=== PATIENT | female | born 1990 | race African-American/Black ===

== ENCOUNTER 2019-04-22 10:30 | Emergency (ER) | payer MEDICAID ==
[~2019-04-22] VITALS: Ht 162.6 cm; Wt 82.0 kg
[2019-04-22] MEDS ORDERED: SODIUM CHLORIDE 0.9% 1,000 ML IV ONE (10:58)
[2019-04-22] MEDS ORDERED: ASPIRIN 81MG TABLET PO ONE (11:00)
[2019-04-22] MEDS: NITROGLYCERIN 0.4MG TABLET SL SL PRN ×3 (11:45→12:01)
[2019-04-22 11:48] LABS: BASOPHILS % 0.7 % (0.0-2.0); CHLORIDE 108 mEq/L (98-107); EOSINOPHILS % 1.4 % (0.0-5.0); HEMATOCRIT. 36.1 % (36.0-48.0); HEMOGLOBIN. 11.9 g/dL (12.0-16.0); LYMPHOCYTES % 35.8 % (20.0-50.0); MEAN CORPUSCULAR HEMOGLOBIN 27.9 pg (28.0-32.0); MEAN CORPUSCULAR VOLUME 84.3 fL (81.0-99.0); MEAN PLATELET VOLUME 8.2 fl (7.4-10.4); MONOCYTES % 7.2 % (2.0-8.0); NEUTROPHILS % 54.9 % (40.0-76.0); PLATELET 390 x1000/uL (130-400); RED BLOOD CELL COUNT 4.28 mill/uL (4.2-5.4); RED CELL DISTRIBUTION WIDTH 13.5 % (11.6-14.6)
[2019-04-22 12:18] LABS: D-DIMER 1.15 mg/L FEU (<0.50); PARTIAL THROMBOPLASTIN TIME 29.2 sec (23.4-31.0); PROTHROMBIN TIME 9.9 sec (9.6-11.0)
[2019-04-22] MEDS ORDERED: IOHEXOL-350 100 ML BOTTLE ONE (15:05)
[2019-04-22 18:00] VITALS: BP 108/62
== END 2019-04-22 18:20 | disposition home or self-care (01) ==
LOC: ER 10:35 → EDBD 10:35 → ER 18:20
DX: R07.89 Other chest pain (principal); F41.9 Anxiety disorder, unspecified; J45.909 Unspecified asthma, uncomplicated
CPT/HCPCS: 36415; 71045; 71275; 80053; 81025; 83880; 84484; 85025; 85379; 85610; 85730; 93005; 99284; J7030; Q9967; Z7610

== ENCOUNTER 2019-07-06 09:26 | Emergency (ER) | payer MEDICAID ==
[~2019-07-06] VITALS: Ht 162.6 cm; Wt 122.4 kg
[2019-07-06 09:47] VITALS: BP 167/85
[2019-07-06] MEDS ORDERED: ALBU18HF2 IH (09:52)
[2019-07-06] MEDS ORDERED: MONT4TAB9 PO (09:53)
[2019-07-06] MEDS ORDERED: CLAR10 PO (09:53)
[2019-07-06] MEDS ORDERED: FLOV11 IH (09:53)
== END 2019-07-06 21:07 | disposition left against medical advice (07) ==
LOC: ER 09:34
DX: R10.2 Pelvic and perineal pain (principal); Z53.21 Procedure and treatment not carried out due to patient leaving prior to being seen by health care provider

== ENCOUNTER 2021-12-18 23:51 | Emergency (ER) | payer MEDICAID ==
[~2021-12-18] VITALS: Ht 162.6 cm; Wt 134.6 kg
[~2021-12-18 23:51] MED LIST: ALBU18HF2 IH; CLAR10 PO; FLOV11 IH; MONT4TAB9 PO
[2021-12-19] MEDS ORDERED: KETOROLAC 60MG/2ML VIAL IM ONE (03:30)
[2021-12-19] MEDS ORDERED: PREDNISONE 20MG TABLET PO ONE (03:30)
[2021-12-19] MEDS ORDERED: PRED10TA MT (04:09)
[2021-12-19] MEDS ORDERED: IBUP-2028 MT (04:09)
[2021-12-19 04:18] VITALS: BP 144/67
== END 2021-12-19 04:19 | disposition home or self-care (01) ==
LOC: ER 23:51
DX: K58.8 Other irritable bowel syndrome (principal); R10.9 Unspecified abdominal pain; F41.9 Anxiety disorder, unspecified; J45.909 Unspecified asthma, uncomplicated; Z79.899 Other long term (current) drug therapy
CPT/HCPCS: 96372; 99283; J1885; J7512

== ENCOUNTER 2022-01-30 11:06 | Emergency (ER) | payer MEDICAID ==
[~2022-01-30] VITALS: Ht 162.6 cm; Wt 132.0 kg
[~2022-01-30 11:06] MED LIST changes: +IBUP-2028 MT; +PRED10TA MT
[2022-01-30 11:39] VITALS: BP 152/91
[2022-01-30] MEDS ORDERED: ACETAMINOPHEN 500MG TABLET PO ONE (12:45)
[2022-01-30 14:30] LABS: BASOPHILS % 1.4 % (0.0-2.0); EOSINOPHILS % 1.3 % (0.0-5.0); HEMATOCRIT. 39.4 % (36.0-48.0); HEMOGLOBIN. 13.1 g/dL (12.0-16.0); LYMPHOCYTES % 32.2 % (20.0-50.0); MEAN CORPUSCULAR HEMOGLOBIN 28.1 pg (28.0-32.0); MEAN CORPUSCULAR VOLUME 84.6 fL (81.0-99.0); MEAN PLATELET VOLUME 8.2 fl (7.4-10.4); MONOCYTES % 7.8 % (2.0-8.0); NEUTROPHILS % 57.3 % (40.0-76.0); PLATELET 400 x1000/uL (130-400); RED BLOOD CELL COUNT 4.66 mill/uL (4.2-5.4)
[2022-01-30 14:35] LABS: CHLORIDE 106 mEq/L (98-107)
[2022-01-30] MEDS ORDERED: NAPR-1176 MT (14:51)
== END 2022-01-30 15:06 | disposition home or self-care (01) ==
LOC: ER 11:06
DX: M79.89 Other specified soft tissue disorders (principal); J45.909 Unspecified asthma, uncomplicated
CPT/HCPCS: 36415; 73630; 80048; 81025; 85025; 93971; 99285

== ENCOUNTER 2022-12-06 14:59 | Emergency (ER) | payer MEDICAID ==
[~2022-12-06] VITALS: Ht 162.6 cm; Wt 131.0 kg
[~2022-12-06 14:59] MED LIST changes: +MONT4TAB71 PO; -MONT4TAB9 PO; +NAPR-1176 MT
[2022-12-06 15:46] LABS: CHLORIDE 108 mEq/L (98-107)
[2022-12-06 15:56] LABS: BASOPHILS % 0.9 % (0.0-2.0); EOSINOPHILS % 1.2 % (0.0-5.0); HEMATOCRIT. 37.5 % (36.0-48.0); HEMOGLOBIN. 12.9 g/dL (12.0-16.0); LYMPHOCYTES % 33.2 % (20.0-50.0); MEAN CORPUSCULAR VOLUME 84.2 fL (81.0-99.0); MONOCYTES % 6.6 % (2.0-8.0); NEUTROPHILS % 58.1 % (40.0-76.0); PLATELET 420 x1000/uL (130-400); RED BLOOD CELL COUNT 4.45 mill/uL (4.2-5.4); RED CELL DISTRIBUTION WIDTH 13.5 % (11.6-14.6)
[2022-12-06 17:10] LABS: CLARITY URINE CLEAR (CLEAR); COLOR URINE YELLOW (YELLOW); KETONES URINE NEGATIVE (NEGATIVE); LEUKOCYTE ESTERASE URINE NEGATIVE (NEGATIVE); NITRITE URINE NEGATIVE (NEGATIVE); OCCULT BLOOD URINE TRACE (NEGATIVE); PH URINE 5.5 (4.5-8.0); PROTEIN URINE NEGATIVE (NEGATIVE); SPECIFIC GRAVITY URINE 1.014 (1.005-1.030); UROBILINOGEN URINE 0.2 E.U./dL (0.2-1.0)
[2022-12-06] MEDS ORDERED: ONDANSETRON HCL 4MG/2ML INJ IV ONE (17:15)
[2022-12-06] MEDS ORDERED: MORPHINE SULFATE 4 MG/ML CPJ (NOT FOR IM USE) IV ONE (17:15)
[2022-12-06] MEDS ORDERED: P50 MT (18:57)
[2022-12-06] MEDS ORDERED: ONDA4TAB50 MT (18:57)
[2022-12-06] MEDS ORDERED: IBUP-1525 MT (18:57)
[2022-12-06] MEDS ORDERED: TOPUD MT (18:57)
[2022-12-06 19:10] VITALS: BP 128/82
== END 2022-12-06 19:15 | disposition home or self-care (01) ==
LOC: ER 15:48
DX: R10.30 Lower abdominal pain, unspecified (principal); F41.9 Anxiety disorder, unspecified; J45.909 Unspecified asthma, uncomplicated; Z98.890 Other specified postprocedural states; Z79.899 Other long term (current) drug therapy
CPT/HCPCS: 36415; 74176; 80053; 81003; 81025; 85025; 96374; 96375; 99285; J2270; J2405; Z7610

== ENCOUNTER 2023-10-07 16:35 | Emergency (ER) | payer MEDICAID ==
[~2023-10-07] VITALS: Ht 162.6 cm; Wt 128.0 kg
[~2023-10-07 16:35] MED LIST changes: +IBUP-1525 MT; +ONDA4TAB50 MT; +P50 MT; +TOPUD MT
[2023-10-07 16:46] VITALS: TEMP 98.5; O2SAT 100
[2023-10-07] MEDS ORDERED: KETOROLAC 60MG/2ML VIAL IM ONE (18:00)
[2023-10-07 21:12] LABS: BASOPHILS % 0.9 % (0.0-2.0); EOSINOPHILS % 1.4 % (0.0-5.0); HEMATOCRIT. 36.7 % (36.0-48.0); HEMOGLOBIN. 12.6 g/dL (12.0-16.0); LYMPHOCYTES % 37.5 % (20.0-50.0); MEAN CORPUSCULAR HGB CONC 34.4 g/dL (31.0-37.0); MEAN CORPUSCULAR VOLUME 84.2 fL (81.0-99.0); MEAN PLATELET VOLUME 7.6 fl (7.4-10.4); MONOCYTES % 8.4 % (2.0-8.0); NEUTROPHILS % 51.8 % (40.0-76.0); PLATELET 471 x1000/uL (130-400); RED BLOOD CELL COUNT 4.36 mill/uL (4.2-5.4); RED CELL DISTRIBUTION WIDTH 13.6 % (11.6-14.6); WHITE BLOOD COUNT 7.7 x1000/uL (4.5-11.0)
[2023-10-07 21:27] LABS: HCG SCREEN NEGATIVE
[2023-10-07 21:29] LABS: ALANINE AMINOTRANSFERASE 10 IU/L (10-49); ALBUMIN 4.6 g/dL (3.2-4.8); ASPARTATE AMINOTRANSFERASE 18 IU/L (<34); BILIRUBIN TOTAL 0.3 mg/dL (0.1-1.0); CALCIUM 9.2 mg/dL (8.7-10.4); CARBON DIOXIDE 26 mEq/L (21-32); CHLORIDE 107 mEq/L (98-107); CREATININE 0.9 mg/dL (0.6-1.0); GLUCOSE 78 mg/dL (70-105); POTASSIUM 3.9 mEq/L (3.5-5.1); PROTEIN TOTAL 8.6 g/dL (6.0-8.3); SODIUM 138 mEq/L (136-145); UREA NITROGEN BLOOD 9 mg/dL (9-23)
[2023-10-07 21:31] LABS: TROPONIN I HIGH SENSITIVITY < 4 ng/L (3.0-34)
[2023-10-07 22:00] VITALS: BP 132/82; PULSE 85; RESP 15
[2023-10-07] MEDS: KETOROLAC 60MG/2ML VIAL IM NR (22:00)
[2023-10-07] MEDS ORDERED: IOHEXOL-350 100 ML BOTTLE ONE (23:17)
== END 2023-10-08 00:08 | disposition home or self-care (01) ==
LOC: ER 16:53
DX: R07.89 Other chest pain (principal); N64.4 Mastodynia; R79.1 Abnormal coagulation profile; F41.9 Anxiety disorder, unspecified; J45.909 Unspecified asthma, uncomplicated; Z98.890 Other specified postprocedural states; Z79.899 Other long term (current) drug therapy
CPT/HCPCS: 80053; 84703; 85025; 85379; 84484; 36415; 71045; 71275; 93005; 96372; 99285; Q9967; J1885; Z7610 ×2

== ENCOUNTER 2024-07-10 12:49 | Emergency (ER) | payer MEDICAID ==
[~2024-07-10] VITALS: Ht 162.6 cm; Wt 128.0 kg
[2024-07-10 12:58] VITALS: O2SAT 97
[2024-07-10] MEDS ORDERED: SULF1TAB48 MT (14:39)
[2024-07-10] MEDS ORDERED: ACET-2708 MT (14:39)
[2024-07-10 16:11] VITALS: BP 122/68; PULSE 81; RESP 16; TEMP 36.61404; O2SAT 97
== END 2024-07-10 16:11 | disposition home or self-care (01) ==
LOC: ER 12:49
DX: L02.411 Cutaneous abscess of right axilla (principal); F41.9 Anxiety disorder, unspecified; J45.909 Unspecified asthma, uncomplicated; Z79.899 Other long term (current) drug therapy; Z98.890 Other specified postprocedural states
CPT/HCPCS: 99283